=== PATIENT | female | born 1955 | race African-American/Black ===

== ENCOUNTER 2017-10-11 09:46 | Inpatient (IN) | payer MEDICARE, OTHER ==
[2017-10-11 10:14] VITALS: BMI 24.1
--- NOTE | 2017-10-11 12:43 | HP ---
CIWA Score - CIWA Score Nausea/Vomitin (DIARRHEA) Muscle Tremors: 4-Moderate,w/Arms Extend Anxiety: 5 Agitation: 4-Moderately Restless Paroxysmal Sweats: 1-Minimal Palms Moist Orientation: 0-Oriented Tacttile Disturbances: 0-None Auditory Disturbances: 0-None Visual Disturbances: 0-None Headache: 0-None Present CIWA-Ar Total Score: 16 Admission ROS S - [facility] Chief Complaint: ALCOHOL WITHDRAWAL SX Allergies/Adverse Reactions: Allergies Allergy/AdvReac Type Severity Reaction Status Date / Time No Known Allergies Allergy Verified 10/11/17 10:29 History of Present Illness: 62 Y/O A/FEMALE WITH A HX OF ALCOHOL DEPENDENCE SEEKING DETOX TX. PT REPORTS SHE WAS LAST HERE IN 2010. PT REPORTS 4 YRS OF CLEAN. PT REPORTS SHE IS ON PAIN MANAGEMENT(SEE BELOW) BUT WANTS DETOX FROM ALCOHOL AND WILL TAKE ANY PAIN AID GIVEN PER DETOX PROTOCOL. Others' Prescriptions Patient Name: Isatu Almazan Date: 1955 Address: [address] [place] [address] Sex: Female Rx Written Rx Dispensed Drug Quantity Days Supply Prescriber Name 09/08/2017 09/11/2017 xtampza er 13.5 mg capsule 60 30 Mosheyev, Jose 08/08/2017 08/13/2017 xtampza er 13.5 mg capsule 56 28 Mosheyev, Jose 07/25/2017 07/25/2017 xtampza er 13.5 mg capsule 30 15 Mosheyev, Jose 06/29/2017 07/10/2017 xtampza er 13.5 mg capsule 30 15 Mosheyev, [facility] 05/30/2017 05/30/2017 acetaminophen-cod #3 tablet 60 30 Mosheyev, [facility] 05/30/2017 05/30/2017 morphine sulf er 60 mg tablet 60 30 Mosheyev, [facility] 04/29/2017 04/29/2017 acetaminophen-cod #3 tablet 60 30 Mosheyev, Jose 04/29/2017 04/29/2017 morphine sulf er 60 mg tablet 60 30 Mosheyev, [facility] 04/26/2017 04/26/2017 morphine sulf er 60 mg tablet 6 3 [facility] 04/13/2017 04/14/2017 acetaminophen-cod #3 tablet 15 7 Woodrow Mesa MD 04/13/2017 04/14/2017 morphine sulf er 60 mg tablet 15 7 BonitaWoodrow MD 03/11/2017 03/12/2017 morphine sulf er 60 mg tablet 60 30 BonitaWoodrow fisher MD 02/25/2017 03/11/2017 acetaminophen-cod #3 tablet 60 30 BonitaWoodrow fisher MD 01/25/2017 02/04/2017 acetaminophen-cod #3 tablet 60 30 Deny, Gilberto A 01/25/2017 02/04/2017 morphine sulf er 60 mg tablet 60 30 Deny, Gilberto A 12/27/2016 01/06/2017 acetaminophen-cod #3 tablet 60 30 BonitaWoodrow MD 12/27/2016 01/06/2017 morphine sulf er 60 mg tablet 60 30 BonitaWoodrow MD 11/12/2016 12/03/2016 acetaminophen-cod #3 tablet 60 30 BonitaWoodrow MD 11/12/2016 12/03/2016 morphine sulf er 60 mg tablet 60 30 BonitaWoodrow MD 10/26/2016 10/31/2016 acetaminophen-cod #3 tablet 60 30 [facility] 10/26/2016 10/31/2016 morphine sulf er 100 mg tablet 60 30 [facility] Patient Name: Isatu Almazan Date: 1955 Address: [address] [place], [place] [id number] [place] [address] Sex: Female Rx Written Rx Dispensed Drug Quantity Days Supply Prescriber Name 04/25/2017 04/25/2017 diazepam 5 mg tablet 10 10 Nathanael Shinecy Batsheva * - Drugs marked with an asterisk are compound drugs. If the compound drug is made up of more than one controlled substance, then each controlled substance will be a separate row in the table. PT HAS A PMD: DR. BRIGGS AT [place], [place]. Exam Limitations: No Limitations - Ebola screening Have you traveled outside of the country in the last 21 days: No Have you had contact with anyone from an Ebola affected area: No Have you been sick,other than usual withdrawal symptoms: No Do you have a fever: No - Review of Systems Constitutional: Chills, Loss of Appetite, Night Sweats, Changes in sleep, Unintentional Wgt. Loss EENT: reports: Blurred Vision (WEARS GLASSES), Dental Problems (MISSING TEETH) Respiratory: reports: No Symptoms reported Cardiac: reports: No Symptoms Reported GI: reports: Diarrhea, Poor Appetite, Poor Fluid Intake : reports: Frequency, Urgency Musculoskeletal: reports: Back Pain, Joint Pain, Muscle Pain Integumentary: reports: No Symptoms Reported Neuro: reports: Tremors, Dizziness Endocrine: reports: No Symptoms Reported Hematology: reports: No Symptoms Reported Psychiatric: reports: Orientated x3, Anxious, Depressed Other Systems: Reviewed and Negative Patient History - Patient Medical History Hx Anemia: No Hx Asthma: No Hx Chronic Obstructive Pulmonary Disease (COPD): No Hx Depression: Yes (HX OF MDD WITH PSYCHOTIC FEATURES) Hx Suicide Attempt: No (DENIES) Hx Schizophrenia: Yes - Patient Surgical History Past Surgical History: Yes Other Surgical History: ECTOPIC SX AT 20 YRS OLD Anesthesia Reaction: No - PPD History Previous Implant?: Yes Documented Results: Negative w/o proof PPD to be Administered?: Yes - Reproductive History Patient is a Female of Child Bearing Age (11 -55 yrs old): 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 History Hx Alcohol Use: Yes (BACARDI) Hx Substance Use: Yes (MARIJUANA) Substance Use Type: Alcohol, Marijuana Hx Substance Use Treatment: Yes (LAST TX AT [facility]) - Substances Abused Alcohol Route: Oral Frequency: Daily Amount used: 1 PINT OF BACARDI Age of first use: 18 Date of Last Use: 10/11/17 Marijuana/Hashish Route: Smoking Frequency: 1-2 times per week Amount used: $10 Age of first use: 18 Date of Last Use: 10/05/17 Family Disease History - Family Disease History Family Disease History: Diabetes: Grandparent (), Sister (2 SISTERS), Other: Mother (HTN-) Admission Physical Exam BHS - Vital Signs Vital Signs: Vital Signs - 24 hr 10/11/17 10:12 Temperature 97.5 F L Pulse Rate 110 H Respiratory 18 Rate Blood Pressure 145/102 - Physical General Appearance: Yes: Moderate Distress, Irritable, Anxious HEENTM: Yes: EOMI, Normocephalic, BARBARA, Pharynx Normal Respiratory: Yes: Chest Non-Tender, Lungs Clear, Normal Breath Sounds, No Respiratory Distress Neck: Yes: No masses,lesions,Nodules, Supple, Trachea in good position Breast: Yes: Breast Exam Deferred Cardiology: Yes: Regular Rhythm, S1, S2, Tachycardia Abdominal: Yes: Normal Bowel Sounds, Non Tender, Flat Genitourinary: Yes: Other (N/C) Back: Yes: Within Normal Limits Musculoskeletal: Yes: full range of Motion, Gait Steady Extremities: Yes: Normal Range of Motion, Non-Tender Neurological: Yes: 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 intact, Fully Oriented, Alert, Motor Strength 5/5 Integumentary: Yes: Dry, Warm Lymphatic: Yes: Within Normal Limits - Diagnostic (1) Alcohol dependence with uncomplicated withdrawal Current Visit: Yes Status: Acute (2) Diabetes mellitus Current Visit: Yes Status: Chronic (3) Hypertension Current Visit: Yes Status: Chronic Qualifiers: Hypertension type: essential hypertension Qualified Code(s): I10 - Essential (primary) hypertension (4) Hx of manic depressive disorder Current Visit: Yes Status: Chronic (5) Chronic bilateral back pain Current Visit: Yes Status: Acute Qualifiers: Back pain location: low back pain Sciatica laterality: sciatica of right side Cleared for Admission [facility] - Detox or Rehab [facility] Level of Care: Medically Managed Detox Regimen/Protocol: Librium [facility] Breath Alcohol Content Breath Alcohol Content: 0 Urine Pregancy Test - Result Urine Test Results: Negative- NO Line Present Urine Drug Screen - Results Drug Screen Negative: No Urine Drug Screen Results: RAY-Cocaine, OXY-Oxycodone
[2017-10-11] MEDS ORDERED: IBUPROFEN 400 MG TABLET (FP) PO PRN (13:22)
[2017-10-11] MEDS ORDERED: P-EPHED 60MG/TRIPROLIDI 2.5MG TABLET PO PRN (13:22)
[2017-10-11] MEDS ORDERED: guaiFENesin/D-METHORPHAN HB 10 ML UNIT-DOSE CUPS PO PRN (13:22)
[2017-10-11] MEDS ORDERED: MAGNESIUM HYDROX 2400MG/30ML ORAL SUSPENSION 30 ML CUP PO PRN (13:22)
[2017-10-11] MEDS ORDERED: MAG HYDROX/AL HYDROX/SIMETH 30 ML UNIT-DOSE CUP PO PRN (13:22)
[2017-10-11] MEDS ORDERED: MAGNESIUM CITRATE 300 ML BOTTLE PO PRN (13:22)
[2017-10-11] MEDS ORDERED: MENTHOL/PHENOL 1 EACH UD MM PRN (13:22)
[2017-10-11] MEDS ORDERED: NICOTINE POLACRILEX 2 MG GUM BUC PRN (13:22)
[2017-10-11] MEDS ORDERED: LOPERAMIDE HCL 2 MG CAPSULE PO PRN (13:22)
[2017-10-11] MEDS ORDERED: chlordiazePOXIDE HCL 25 MG CAPSULE PO PRN (13:22)
[2017-10-11] MEDS ORDERED: chlordiazePOXIDE HCL 25 MG CAPSULE PO ONE (14:45)
[2017-10-11] MEDS: NICOTINE 14 MG/24 HOURS TOPICAL PATCH TD SCH (15:48)
[2017-10-11] MEDS: LIDOCAINE 5% TOPICAL PATCH TP SCH (15:49)
[2017-10-11] MEDS: chlordiazePOXIDE HCL 25 MG CAPSULE PO SCH ×2 (17:51→23:12)
[2017-10-11] MEDS: HYDROCHLOROTHIAZIDE 12.5 MG CAPSULE (FP) PO SCH (17:51)
[2017-10-11] MEDS: CYCLOBENZAPRINE HCL 10 MG TABLET (FP) PO PRN (17:54)
[2017-10-11] MEDS: LIDOCAINE PATCH REMOVAL MC SCH (22:55)
[2017-10-11] MEDS: THIAMINE HCL 100 MG TABLET (FP) PO SCH (23:14)
[2017-10-12] MEDS: chlordiazePOXIDE HCL 25 MG CAPSULE PO SCH ×4 (05:39→22:25)
[2017-10-12] MEDS: ACETAMINOPHEN 325 MG TABLET (FP) PO PRN (07:58)
--- NOTE | 2017-10-12 09:10 | CONSULT ---
[facility] Psychiatric Consult - Data Date of interview: 10/12/17 Admission source: [facility] Identifying data: This is a 62 year4s old female, , living alone, on SSD , with psychiatric hospitalization history, history of MDD, long history of Alcohol Cannabis and Nicotine dependence, reporting withdrawaol symptoms and seeking for detox. Substance Abuse History: - Smoking Cessation. Smoking history: Current every day smoker. Have you smoked in the past 12 months: Yes. Aproximately how many cigarettes per day: 4. Hx Chewing Tobacco Use: No. Initiated information on smoking cessation: Yes. 'Breaking Loose' booklet given: 10/11/17. - Substance & Tx. History. Hx Alcohol Use: Yes (BACARDI). Hx Substance Use: Yes (MARIJUANA ). Substance Use Type: Alcohol, Marijuana. Hx Substance Use Treatment: Yes ( LAST TX AT [facility]). - Substances Abused. Alcohol. Route: Oral. Frequency: Daily. Amount used: 1 PINT OF BACARDI. Age of first use: 18. Date of Last Use : 10/11/17. Marijuana/Hashish. Route: Smoking. Frequency: 1-2 times per week. Amount used: $10. Age of first use: 18. Date of Last Use: 10/05/17 Medical History: HTN, DM, LBP Psychiatric History: Patient reports history of Depression, mdd, reports unclear psychiatrioc admission on about 3 months ago at [facility] reports cuirrently taking: Abilify 5mg po qhs. Denies suicidal, homicidal history Physical/Sexual Abuse/Trauma History: Denies Additional Comment: Abilify 5mg po qhs Mental Status Exam - Mental Status Exam Alert and Oriented to: Person Cognitive Function: Fair Patient Appearance: Unkempt Mood: Sad Affect: Mood Congruent Patient Behavior: Cooperative Voice Loudness: Mildly Soft/Quiet Thought Process: Goal Oriented Thought Disorder: Being Controlled Hallucinations: Denies Suicidal Ideation: Denies Homicidal Ideation: Denies Insight/Judgement: Fair Sleep: Difficulty falling asleep Appetite: Fair Muscle strength/Tone: Mild Hypotonicity Gait/Station: Shuffling Additional Comments: Abilify 5mg po qhs Psychiatric Findings - Problem List ([place] 1, 2,3) (1) Cannabis dependence Current Visit: Yes Status: Acute (2) Nicotine dependence Current Visit: Yes Status: Acute (3) Drug-induced mood disorder Current Visit: Yes Status: Acute (4) MDD (major depressive disorder) Current Visit: Yes Status: Acute (5) Alcohol dependence with uncomplicated withdrawal Current Visit: Yes Status: Acute (6) Chronic bilateral back pain Current Visit: Yes Status: Acute Qualifiers: Back pain location: low back pain Sciatica laterality: sciatica of right side (7) Diabetes mellitus Current Visit: Yes Status: Chronic (8) Hypertension Current Visit: Yes Status: Chronic Qualifiers: Hypertension type: essential hypertension Qualified Code(s): I10 - Essential (primary) hypertension - Initial Treatment Plan Initial Treatment Plan: Abilify 5mg po qhs
[2017-10-12] MEDS ORDERED: TRIMETHOBENZAMIDE HCL 200MG/2ML INJ IM PRN (10:07)
[2017-10-12 10:49] LABS: CHLORIDE 98 mmol/L (98-107); POTASSIUM 4.6 mmol/L (3.5-5.1); SODIUM 134 mmol/L (136-145)
[2017-10-12 10:57] LABS: HEMATOCRIT 42.9 % (32.4-45.2); HEMOGLOBIN 14.4 GM/dL (10.7-15.3); MCH 32.4 pg (25.7-33.7); MCHC 33.6 g/dl (32.0-36.0); MEAN CELL VOLUME 96.2 fl (80-96); MEAN PLT VOLUME 8.9 fl (7.5-11.1); PLATELET COUNT 369 K/MM3 (134-434); RBC 4.46 M/mm3 (3.60-5.2); RDW 12.5 % (11.6-15.6); WHITE BLOOD COUNT 12.1 K/mm3 (4.0-10.0)
[2017-10-12 11:00] LABS: URINE APPEARANCE SLCLOUDY; URINE BILIRUBIN NEGATIVE (<2.0 mg/dL); URINE COLOR YELLOW; URINE GLUCOSE (UA) 3+ (NEGATIVE); URINE KETONE 2+ (NEGATIVE); URINE NITRITE POSITIVE (NEGATIVE); URINE PROTEIN NEGATIVE (NEGATIVE); URINE UROBILINOGEN NEGATIVE mg/dL (0.2-1.0)
[2017-10-12] MEDS: HYDROCHLOROTHIAZIDE 12.5 MG CAPSULE (FP) PO SCH (11:02)
[2017-10-12] MEDS: CYCLOBENZAPRINE HCL 10 MG TABLET (FP) PO PRN (11:02)
[2017-10-12] MEDS: PRENATAL VITAMINS W/ FOLIC ACID TABLET (FP) PO SCH (11:02)
[2017-10-12] MEDS: NICOTINE 14 MG/24 HOURS TOPICAL PATCH TD SCH (11:03)
[2017-10-12] MEDS: LIDOCAINE 5% TOPICAL PATCH TP SCH (11:04)
[2017-10-12 11:12] LABS: ALBUMIN 4.4 g/dl (3.4-5.0); ALK PHOS 92 U/L (45-117); ANION GAP 14 MMOL/L (8-16); BILIRUBIN,TOTAL 0.8 mg/dL (0.2-1.0); BLOOD UREA NITROGEN 13 mg/dL (7-18); CO2 22 mmol/L (21-32); CREATININE 0.9 mg/dL (0.55-1.02); GLUCOSE,RANDOM 261 mg/dL (74-106); SGOT/AST 18 U/L (15-37); SGPT/ALT 27 U/L (12-78)
[2017-10-12 11:18] LABS: URINE LEUK ESTERASE 1+ (NEGATIVE)
[2017-10-12 11:40] LABS: EPI CELLS RARE /HPF (FEW); URINE BACTERIA MODERATE /hpf (NONE SEEN); URINE MUCUS RARE; YEAST FEW
--- NOTE | 2017-10-12 12:25 | PN ---
[facility] CIWA - CIWA Score Nausea/Vomitin Muscle Tremors: 2 Anxiety: 3 Agitation: 3 Paroxysmal Sweats: 3 Orientation: 0-Oriented Tacttile Disturbances: 2-Mild Itch/Numbness/Burn Auditory Disturbances: 0-None Visual Disturbances: 0-None Headache: 1-Very Mild CIWA-Ar Total Score: 19 BHS COWS - Scale Resting Pulse: 1= [place] 81-100 Sweatin= Chills/Flushing Restless Observation: 1= Difficult to Sit Still Pupil Size: 1= Pupils >than Normal Bone or Joint Aches: 2= Severe Diffuse Aches Runny Nose/ Eye Tearin= Nasal Congestion GI Upset > 30mins: 3= Vomiting/Diarrhea Tremor Observation of Outstretched Hands: 1= Tremor [place], Not Seen Yawning Observation: 0= None Anxiety or Irritability: 2=Irritable/Anxious Goose Flesh Skin: 0=Smooth Skin COWS Score: 13 BHS Progress Note (SOAP) Subjective: interrupted sleep, sweats , shakes ,nausea, vomiting , diarrhea Objective: 10/12/17 12:39 Vital Signs Temperature 98.2 F 10/12/17 12:07 Pulse Rate 96 H 10/12/17 12:07 Respiratory Rate 18 10/12/17 12:07 Blood Pressure 144/97 10/12/17 12:07 O2 Sat by Pulse Oximetry (%) Laboratory Tests 10/11/17 10/11/17 10/12/17 12:59 16:38 05:38 WBC RBC Hgb Hct MCV MCH MCHC RDW Plt Count MPV Sodium Potassium Chloride Carbon Dioxide Anion Gap BUN Creatinine Creat Clearance w eGFR POC Glucometer 254 221 187 Random Glucose Calcium Total Bilirubin AST ALT Alkaline Phosphatase Total Protein Albumin Urine Color Urine Appearance Urine pH Ur Specific [place] Urine Protein Urine Glucose (UA) Urine Ketones Urine Blood Urine Nitrite Urine Bilirubin Urine Urobilinogen Ur Leukocyte Esterase Urine WBC (Auto) Urine RBC (Auto) Ur Epithelial Cells Urine Bacteria Urine Mucus Urine Yeast RPR Titer 10/12/17 10/12/17 10/12/17 06:00 06:00 06:00 WBC 12.1 H RBC 4.46 Hgb 14.4 Hct 42.9 MCV 96.2 H MCH 32.4 MCHC 33.6 RDW 12.5 Plt Count 369 MPV 8.9 Sodium 134 L Potassium 4.6 Chloride 98 Carbon Dioxide 22 Anion Gap 14 BUN 13 Creatinine 0.9 Creat Clearance w eGFR > 60 POC Glucometer Random Glucose 261 H Calcium 10.0 Total Bilirubin 0.8 AST 18 ALT 27 Alkaline Phosphatase 92 Total Protein 8.0 Albumin 4.4 Urine Color Urine Appearance Urine pH Ur Specific [place] Urine Protein Urine Glucose (UA) Urine Ketones Urine Blood Urine Nitrite Urine Bilirubin Urine Urobilinogen Ur Leukocyte Esterase Urine WBC (Auto) Urine RBC (Auto) Ur Epithelial Cells Urine Bacteria Urine Mucus Urine Yeast RPR Titer Nonreactive 10/12/17 09:05 WBC RBC Hgb Hct MCV MCH MCHC RDW Plt Count MPV Sodium Potassium Chloride Carbon Dioxide Anion Gap BUN Creatinine Creat Clearance w eGFR POC Glucometer Random Glucose Calcium Total Bilirubin AST ALT Alkaline Phosphatase Total Protein Albumin Urine Color Yellow Urine Appearance Slcloudy Urine pH 5.0 Ur Specific [place] 1.027 Urine Protein Negative Urine Glucose (UA) 3+ H Urine Ketones 2+ H Urine Blood Negative Urine Nitrite Positive Urine Bilirubin Negative Urine Urobilinogen Negative Ur Leukocyte Esterase 1+ H Urine WBC (Auto) <1 Urine RBC (Auto) 5 Ur Epithelial Cells Rare Urine Bacteria Moderate Urine Mucus Rare Urine Yeast Few RPR Titer 10/12/17 15:00 pt ambulating c/o n/vomiting , diarrhea , but aox3 responds appropriately , 10/12/17 15:13 Assessment: 10/12/17 15:01 withdrawal sx's DM Pt started pt on methadone detox because she has been on pain management over the past several years receiving opioids daily. Pt now in withdrawal .elevated bp, heart rate , nausea, vomiting , diarrhea , uncomfortable Will also continue to monitor pt -she is diabetic glucose is 261, ag 14, wbc 12.1, u/ketones 2+, u/glucose 3+ WITH NAUSEA AND VOMITING ; SERUM ACETONE SENT. Pt STATES SHE IS BETTER AFTER RECEIVING METHADONE . Plan: cont.detox with libriun and methadone increase fluids f/up serum acetone f/up clnically bgm insulin coverage
[2017-10-12] MEDS ORDERED: METHADONE HCL 10 MG TABLET (FOR DETOX USE ONLY) PO ONE ×2 (12:30→23:00)
--- NOTE | 2017-10-12 12:30 | EKG ---
Test Reason : Blood Pressure : / mmHG Vent. Rate : 097 BPM Atrial Rate : 097 BPM P-R Int : 122 ms QRS Dur : 076 ms QT Int : 364 ms P-R-T Axes : 060 032 054 degrees QTc Int : 462 ms NORMAL SINUS RHYTHM WITH SINUS ARRHYTHMIA NORMAL ECG NO PREVIOUS ECGS AVAILABLE Confirmed by FITZ ELLIS MD ([id number]) on 10/12/2017 12:30:09 PM Referred By: Confirmed By:FITZ ELLIS MD
--- NOTE | 2017-10-12 12:32 | EKG ---
Test Reason : Blood Pressure : / mmHG Vent. Rate : 096 BPM Atrial Rate : 096 BPM P-R Int : 116 ms QRS Dur : 074 ms QT Int : 368 ms P-R-T Axes : 069 016 028 degrees QTc Int : 464 ms NORMAL SINUS RHYTHM NORMAL ECG WHEN COMPARED WITH ECG OF 11-OCT-2017 15:22, NO SIGNIFICANT CHANGE WAS FOUND Confirmed by FITZ ELLIS MD ([id number]) on 10/12/2017 12:32:14 PM Referred By: Confirmed By:FITZ ELLIS MD
[2017-10-12 13:29] LABS: SICKLE CELL SCREEN NEGATIVE (NEGATIVE)
[2017-10-12] MEDS ORDERED: INSULIN SLIDING SCALE (NOVOLOG) 1 VIAL SQ SCH (16:30)
[2017-10-12] MEDS ORDERED: INSULIN (NOVOLOG) ASPART 100 UNITS/ML 10ML VIAL ONE (16:48)
[2017-10-12] MEDS ORDERED: INSULIN (NOVOLOG) ASPART 100 UNITS/ML 10ML VIAL SQ ONE ×2 (17:15→19:15)
[2017-10-12] MEDS: ARIPiprazole 5 MG TABLET (FP) PO SCH (22:25)
[2017-10-12] MEDS: THIAMINE HCL 100 MG TABLET (FP) PO SCH (23:07)
[2017-10-12] MEDS: LIDOCAINE PATCH REMOVAL MC SCH (23:07)
[2017-10-13] MEDS: chlordiazePOXIDE HCL 25 MG CAPSULE PO SCH ×2 (06:31→10:31)
[2017-10-13] MEDS ORDERED: INSULIN (NOVOLOG) ASPART 100 UNITS/ML 10ML VIAL ONE ×3 (06:52→16:55)
[2017-10-13] MEDS: INSULIN SLIDING SCALE (NOVOLOG) 1 VIAL SQ SCH ×2 (06:54→17:09)
[2017-10-13] MEDS ORDERED: metFORMIN HCL 500 MG TABLET (FP) PO SCH (07:00)
[2017-10-13] MEDS ORDERED: METHADONE HCL 5 MG TABLET (FOR DETOX USE ONLY) PO ONE (10:00)
[2017-10-13] MEDS: HYDROCHLOROTHIAZIDE 12.5 MG CAPSULE (FP) PO SCH (10:30)
[2017-10-13] MEDS: PRENATAL VITAMINS W/ FOLIC ACID TABLET (FP) PO SCH (10:30)
[2017-10-13] MEDS: LIDOCAINE 5% TOPICAL PATCH TP SCH (10:31)
[2017-10-13] MEDS: CYCLOBENZAPRINE HCL 10 MG TABLET (FP) PO PRN (10:32)
[2017-10-13] MEDS: NICOTINE 14 MG/24 HOURS TOPICAL PATCH TD SCH (10:33)
[2017-10-13 11:33] LABS: BASO % 0.6 % (0-2.0); EOS % 1.5 % (0-4.5); HEMATOCRIT 41.5 % (32.4-45.2); LYMPH % 38.5 % (8-40); MCH 32.2 pg (25.7-33.7); MCHC 33.6 g/dl (32.0-36.0); MEAN CELL VOLUME 95.8 fl (80-96); MEAN PLT VOLUME 8.3 fl (7.5-11.1); MONO % 7.1 % (3.8-10.2); NEUT % 52.3 % (42.8-82.8); PLATELET COUNT 298 K/MM3 (134-434); RBC 4.34 M/mm3 (3.60-5.2); RDW 12.4 % (11.6-15.6); WHITE BLOOD COUNT 7.1 K/mm3 (4.0-10.0)
[2017-10-13] MEDS: chlordiazePOXIDE 5 MG CAPSULE PO SCH (17:11)
--- NOTE | 2017-10-13 22:31 | PN ---
S CIWA - CIWA Score Nausea/Vomitin-Mild Nausea/No Vomiting Muscle Tremors: 4-Moderate,w/Arms Extend Anxiety: 1-Mildly Anxious Agitation: 1-Slight > Activity Paroxysmal Sweats: 1-Minimal Palms Moist Orientation: 0-Oriented Tacttile Disturbances: 0-None Auditory Disturbances: 0-None Visual Disturbances: 0-None Headache: 0-None Present CIWA-Ar Total Score: 8 BHS COWS - Scale Resting Pulse: 1= [place] 81-100 Sweatin= Chills/Flushing Restless Observation: 0= Sits Still Pupil Size: 0= Normal to Room Light Bone or Joint Aches: 0= None Runny Nose/ Eye Tearin= None GI Upset > 30mins: 2= Nausea/Diarrhea (No diarrhea) Tremor Observation of Outstretched Hands: 2= Slight Tremor Visible Yawning Observation: 0= None Anxiety or Irritability: 1=Feels Anxious/Irritable Goose Flesh Skin: 0=Smooth Skin COWS Score: 7 S Progress Note (SOAP) Subjective: c/o nausea w/o vomiting or diarrhea, chills and slight sweating, anxiety and shakes. Objective: A& O x 3. Slight perspiration face and hands. (+) tremors. Abd S/NT. Vital Signs - 24 hr 10/12/17 10/13/17 10/13/17 23:58 03:30 08:36 Temperature 97.9 F 97.9 F Pulse Rate 96 H 102 H Respiratory 18 18 20 Rate Blood Pressure 116/78 120/77 10/13/17 10/13/17 10/13/17 09:08 13:57 17:37 Temperature 97.7 F 98.8 F 97.7 F Pulse Rate 99 H 94 H 98 H Respiratory 18 16 18 Rate Blood Pressure 118/69 116/75 107/59 Laboratory Last Values WBC 7.1 K/mm3 (4.0-10.0) 10/13/17 08:00 RBC 4.34 M/mm3 (3.60-5.2) 10/13/17 08:00 Hgb 14.0 GM/dL (10.7-15.3) 10/13/17 08:00 Hct 41.5 % (32.4-45.2) 10/13/17 08:00 MCV 95.8 fl (80-96) 10/13/17 08:00 MCH 32.2 pg (25.7-33.7) 10/13/17 08:00 MCHC 33.6 g/dl (32.0-36.0) 10/13/17 08:00 RDW 12.4 % (11.6-15.6) 10/13/17 08:00 Plt Count 298 K/MM3 (134-434) 10/13/17 08:00 MPV 8.3 fl (7.5-11.1) 10/13/17 08:00 Absolute Neuts (auto) 3.7 K/mm3 (1.5-8.0) 10/13/17 08:00 Neutrophils % 52.3 % (42.8-82.8) 10/13/17 08:00 Lymphocytes % 38.5 % (8-40) 10/13/17 08:00 Monocytes % 7.1 % (3.8-10.2) 10/13/17 08:00 Eosinophils % 1.5 % (0-4.5) 10/13/17 08:00 Basophils % 0.6 % (0-2.0) 10/13/17 08:00 Nucleated RBC % 0 % (0-0) 10/13/17 08:00 Sickle Cell Screen Negative (NEGATIVE) 10/12/17 06:00 Sodium 134 mmol/L (136-145) L 10/12/17 06:00 Potassium 4.6 mmol/L (3.5-5.1) 10/12/17 06:00 Chloride 98 mmol/L (98-107) 10/12/17 06:00 Carbon Dioxide 22 mmol/L (21-32) 10/12/17 06:00 Anion Gap 14 MMOL/L (8-16) 10/12/17 06:00 BUN 13 mg/dL (7-18) 10/12/17 06:00 Creatinine 0.9 mg/dL (0.55-1.02) 10/12/17 06:00 Creat Clearance w eGFR > 60 (>60) 10/12/17 06:00 POC Glucometer 459 UNITS (80-120) 10/13/17 06:40 Random Glucose 261 mg/dL (74-106) H 10/12/17 06:00 Calcium 10.0 mg/dL (8.5-10.1) 10/12/17 06:00 Total Bilirubin 0.8 mg/dL (0.2-1.0) 10/12/17 06:00 AST 18 U/L (15-37) 10/12/17 06:00 ALT 27 U/L (12-78) 10/12/17 06:00 Alkaline Phosphatase 92 U/L (45-117) 10/12/17 06:00 Total Protein 8.0 g/dl (6.4-8.2) 10/12/17 06:00 Albumin 4.4 g/dl (3.4-5.0) 10/12/17 06:00 Urine Color Yellow 10/12/17 09:05 Urine Appearance Slcloudy 10/12/17 09:05 Urine pH 5.0 (5.0-8.0) 10/12/17 09:05 Ur Specific [place] 1.027 (1.001-1.035) 10/12/17 09:05 Urine Protein Negative (NEGATIVE) 10/12/17 09:05 Urine Glucose (UA) 3+ (NEGATIVE) H 10/12/17 09:05 Urine Ketones 2+ (NEGATIVE) H 10/12/17 09:05 Urine Blood Negative (NEGATIVE) 10/12/17 09:05 Urine Nitrite Positive (NEGATIVE) 10/12/17 09:05 Urine Bilirubin Negative (<2.0 mg/dL) 10/12/17 09:05 Urine Urobilinogen Negative mg/dL (0.2-1.0) 10/12/17 09:05 Ur Leukocyte Esterase 1+ (NEGATIVE) H 10/12/17 09:05 Urine WBC (Auto) <1 /hpf (3-5) 10/12/17 09:05 Urine RBC (Auto) 5 /hpf (0-3) 10/12/17 09:05 Ur Epithelial Cells Rare /HPF (FEW) 10/12/17 09:05 Urine Bacteria Moderate /hpf (NONE SEEN) 10/12/17 09:05 Urine Mucus Rare 10/12/17 09:05 Urine Yeast Few 10/12/17 09:05 Acetone, Qual Trace (NEGATIVE) H 10/12/17 13:05 RPR Titer Nonreactive (NONREACTIVE) 10/12/17 06:00 HIV 1&2 Antibody Screen Negative 10/11/17 09:45 HIV P24 Antigen Negative 10/11/17 09:45 Labs reviewed. 10/13/17 22:32 Assessment: Opiate and Alcohol withdrawal symptoms. Uncontrolled DM Plan: Continue detox Continue glucose monitoring and coverage
--- NOTE | 2017-10-13 22:39 | PN ---
[facility] Progress Note (SOAP) Subjective: States has less w/drawal symptoms but still feels nervous. Objective: A & O x 3. Very mild tremors of hands. Vital Signs - 24 hr 10/12/17 10/13/17 10/13/17 23:58 03:30 08:36 Temperature 97.9 F 97.9 F Pulse Rate 96 H 102 H Respiratory 18 18 20 Rate Blood Pressure 116/78 120/77 10/13/17 10/13/17 10/13/17 09:08 13:57 17:37 Temperature 97.7 F 98.8 F 97.7 F Pulse Rate 99 H 94 H 98 H Respiratory 18 16 18 Rate Blood Pressure 118/69 116/75 107/59 10/13/17 22:37 Temperature 97.7 F Pulse Rate 79 Respiratory 18 Rate Blood Pressure 91/64 Laboratory Last Values WBC 7.1 K/mm3 (4.0-10.0) 10/13/17 08:00 RBC 4.34 M/mm3 (3.60-5.2) 10/13/17 08:00 Hgb 14.0 GM/dL (10.7-15.3) 10/13/17 08:00 Hct 41.5 % (32.4-45.2) 10/13/17 08:00 MCV 95.8 fl (80-96) 10/13/17 08:00 MCH 32.2 pg (25.7-33.7) 10/13/17 08:00 MCHC 33.6 g/dl (32.0-36.0) 10/13/17 08:00 RDW 12.4 % (11.6-15.6) 10/13/17 08:00 Plt Count 298 K/MM3 (134-434) 10/13/17 08:00 MPV 8.3 fl (7.5-11.1) 10/13/17 08:00 Absolute Neuts (auto) 3.7 K/mm3 (1.5-8.0) 10/13/17 08:00 Neutrophils % 52.3 % (42.8-82.8) 10/13/17 08:00 Lymphocytes % 38.5 % (8-40) 10/13/17 08:00 Monocytes % 7.1 % (3.8-10.2) 10/13/17 08:00 Eosinophils % 1.5 % (0-4.5) 10/13/17 08:00 Basophils % 0.6 % (0-2.0) 10/13/17 08:00 Nucleated RBC % 0 % (0-0) 10/13/17 08:00 Sickle Cell Screen Negative (NEGATIVE) 10/12/17 06:00 Sodium 134 mmol/L (136-145) L 10/12/17 06:00 Potassium 4.6 mmol/L (3.5-5.1) 10/12/17 06:00 Chloride 98 mmol/L (98-107) 10/12/17 06:00 Carbon Dioxide 22 mmol/L (21-32) 10/12/17 06:00 Anion Gap 14 MMOL/L (8-16) 10/12/17 06:00 BUN 13 mg/dL (7-18) 10/12/17 06:00 Creatinine 0.9 mg/dL (0.55-1.02) 10/12/17 06:00 Creat Clearance w eGFR > 60 (>60) 10/12/17 06:00 POC Glucometer 459 UNITS (80-120) 10/13/17 06:40 Random Glucose 261 mg/dL (74-106) H 10/12/17 06:00 Calcium 10.0 mg/dL (8.5-10.1) 10/12/17 06:00 Total Bilirubin 0.8 mg/dL (0.2-1.0) 10/12/17 06:00 AST 18 U/L (15-37) 10/12/17 06:00 ALT 27 U/L (12-78) 10/12/17 06:00 Alkaline Phosphatase 92 U/L (45-117) 10/12/17 06:00 Total Protein 8.0 g/dl (6.4-8.2) 10/12/17 06:00 Albumin 4.4 g/dl (3.4-5.0) 10/12/17 06:00 Urine Color Yellow 10/12/17 09:05 Urine Appearance Slcloudy 10/12/17 09:05 Urine pH 5.0 (5.0-8.0) 10/12/17 09:05 Ur Specific [place] 1.027 (1.001-1.035) 10/12/17 09:05 Urine Protein Negative (NEGATIVE) 10/12/17 09:05 Urine Glucose (UA) 3+ (NEGATIVE) H 10/12/17 09:05 Urine Ketones 2+ (NEGATIVE) H 10/12/17 09:05 Urine Blood Negative (NEGATIVE) 10/12/17 09:05 Urine Nitrite Positive (NEGATIVE) 10/12/17 09:05 Urine Bilirubin Negative (<2.0 mg/dL) 10/12/17 09:05 Urine Urobilinogen Negative mg/dL (0.2-1.0) 10/12/17 09:05 Ur Leukocyte Esterase 1+ (NEGATIVE) H 10/12/17 09:05 Urine WBC (Auto) <1 /hpf (3-5) 10/12/17 09:05 Urine RBC (Auto) 5 /hpf (0-3) 10/12/17 09:05 Ur Epithelial Cells Rare /HPF (FEW) 10/12/17 09:05 Urine Bacteria Moderate /hpf (NONE SEEN) 10/12/17 09:05 Urine Mucus Rare 10/12/17 09:05 Urine Yeast Few 10/12/17 09:05 Acetone, Qual Trace (NEGATIVE) H 10/12/17 13:05 RPR Titer Nonreactive (NONREACTIVE) 10/12/17 06:00 HIV 1&2 Antibody Screen Negative 10/11/17 09:45 HIV P24 Antigen Negative 10/11/17 09:45
[2017-10-14] MEDS: MELATONIN 5 MG TABLETS PO PRN ×2 (02:12→21:40)
[2017-10-14] MEDS: chlordiazePOXIDE 5 MG CAPSULE PO SCH ×2 (05:30→10:07)
[2017-10-14] MEDS ORDERED: INSULIN (NOVOLOG) ASPART 100 UNITS/ML 10ML VIAL ONE ×2 (07:06→16:46)
[2017-10-14] MEDS: INSULIN SLIDING SCALE (NOVOLOG) 1 VIAL SQ SCH ×2 (07:13→16:48)
[2017-10-14] MEDS ORDERED: METHADONE HCL 10 MG TABLET (FOR DETOX USE ONLY) PO ONE (10:00)
[2017-10-14] MEDS: HYDROCHLOROTHIAZIDE 12.5 MG CAPSULE (FP) PO SCH (10:06)
[2017-10-14] MEDS: PRENATAL VITAMINS W/ FOLIC ACID TABLET (FP) PO SCH (10:06)
[2017-10-14] MEDS: LIDOCAINE 5% TOPICAL PATCH TP SCH (10:06)
[2017-10-14] MEDS: CYCLOBENZAPRINE HCL 10 MG TABLET (FP) PO PRN (10:06)
[2017-10-14] MEDS: ACETAMINOPHEN 325 MG TABLET (FP) PO PRN (10:08)
[2017-10-14] MEDS: NICOTINE 14 MG/24 HOURS TOPICAL PATCH TD SCH (10:12)
[2017-10-14] MEDS: chlordiazePOXIDE HCL 10 MG CAPSULE PO SCH ×3 (16:48→22:25)
--- NOTE | 2017-10-14 18:43 | PN ---
[facility] Progress Note (SOAP) Subjective: Patient c/o anxiety, slight shakes, and back pain. States feeling better than yesterday. Denies nausea. Objective: Alert and oriented x 3. Mild tremors. Gait steady. Vital Signs 10/14/17 10/14/17 13:37 17:28 Temperature 97.9 F 98.2 F Pulse Rate 108 H 94 H Respiratory 16 20 Rate Blood Pressure 124/80 117/78 Laboratory Last Values WBC 7.1 K/mm3 (4.0-10.0) 10/13/17 08:00 RBC 4.34 M/mm3 (3.60-5.2) 10/13/17 08:00 Hgb 14.0 GM/dL (10.7-15.3) 10/13/17 08:00 Hct 41.5 % (32.4-45.2) 10/13/17 08:00 MCV 95.8 fl (80-96) 10/13/17 08:00 MCH 32.2 pg (25.7-33.7) 10/13/17 08:00 MCHC 33.6 g/dl (32.0-36.0) 10/13/17 08:00 RDW 12.4 % (11.6-15.6) 10/13/17 08:00 Plt Count 298 K/MM3 (134-434) 10/13/17 08:00 MPV 8.3 fl (7.5-11.1) 10/13/17 08:00 Absolute Neuts (auto) 3.7 K/mm3 (1.5-8.0) 10/13/17 08:00 Neutrophils % 52.3 % (42.8-82.8) 10/13/17 08:00 Lymphocytes % 38.5 % (8-40) 10/13/17 08:00 Monocytes % 7.1 % (3.8-10.2) 10/13/17 08:00 Eosinophils % 1.5 % (0-4.5) 10/13/17 08:00 Basophils % 0.6 % (0-2.0) 10/13/17 08:00 Nucleated RBC % 0 % (0-0) 10/13/17 08:00 Sickle Cell Screen Negative (NEGATIVE) 10/12/17 06:00 Sodium 134 mmol/L (136-145) L 09/05/18 06:00 Potassium 4.6 mmol/L (3.5-5.1) 10/12/17 06:00 Chloride 98 mmol/L (98-107) 10/12/17 06:00 Carbon Dioxide 22 mmol/L (21-32) 10/12/17 06:00 Anion Gap 14 MMOL/L (8-16) 10/12/17 06:00 BUN 13 mg/dL (7-18) 10/12/17 06:00 Creatinine 0.9 mg/dL (0.55-1.02) 10/12/17 06:00 Creat Clearance w eGFR > 60 (>60) 10/12/17 06:00 POC Glucometer 380 UNITS (80-120) 10/14/17 05:28 Random Glucose 261 mg/dL (74-106) H 10/12/17 06:00 Calcium 10.0 mg/dL (8.5-10.1) 10/12/17 06:00 Total Bilirubin 0.8 mg/dL (0.2-1.0) 10/12/17 06:00 AST 18 U/L (15-37) 10/12/17 06:00 ALT 27 U/L (12-78) 10/12/17 06:00 Alkaline Phosphatase 92 U/L (45-117) 10/12/17 06:00 Total Protein 8.0 g/dl (6.4-8.2) 10/12/17 06:00 Albumin 4.4 g/dl (3.4-5.0) 10/12/17 06:00 Urine Color Yellow 10/12/17 09:05 Urine Appearance Slcloudy 10/12/17 09:05 Urine pH 5.0 (5.0-8.0) 10/12/17 09:05 Ur Specific [place] 1.027 (1.001-1.035) 10/12/17 09:05 Urine Protein Negative (NEGATIVE) 10/12/17 09:05 Urine Glucose (UA) 3+ (NEGATIVE) H 10/12/17 09:05 Urine Ketones 2+ (NEGATIVE) H 10/12/17 09:05 Urine Blood Negative (NEGATIVE) 10/12/17 09:05 Urine Nitrite Positive (NEGATIVE) 10/12/17 09: Urine Bilirubin Negative (<2.0 mg/dL) 09/05/18 09:05 Urine Urobilinogen Negative mg/dL (0.2-1.0) 10/12/17 09:05 Ur Leukocyte Esterase 1+ (NEGATIVE) H 10/12/17 09:05 Urine WBC (Auto) <1 /hpf (3-5) 10/12/17 09:05 Urine RBC (Auto) 5 /hpf (0-3) 10/12/17 09:05 Ur Epithelial Cells Rare /HPF (FEW) 10/12/17 09:05 Urine Bacteria Moderate /hpf (NONE SEEN) 10/12/17 09:05 Urine Mucus Rare 10/12/17 09:05 Urine Yeast Few 10/12/17 09:05 Acetone, Qual Trace (NEGATIVE) H 10/12/17 13:05 RPR Titer Nonreactive (NONREACTIVE) 10/12/17 06:00 HIV 1&2 Antibody Screen Negative 10/11/17 09:45 HIV P24 Antigen Negative 10/11/17 09:45 Labs reviewed. Assessment: Alcohol and opiate withdrawal symptoms. Uncontrolled DM. Plan: Continue detox. Continue DM management. Importance of f/u w/ PCP upon discharge discussed.
[2017-10-14] MEDS: ARIPiprazole 5 MG TABLET (FP) PO SCH (21:40)
[2017-10-14] MEDS: THIAMINE HCL 100 MG TABLET (FP) PO SCH (21:41)
[2017-10-15] MEDS: chlordiazePOXIDE HCL 10 MG CAPSULE PO SCH (05:49)
[2017-10-15] MEDS ORDERED: INSULIN (NOVOLOG) ASPART 100 UNITS/ML 10ML VIAL ONE (05:54)
[2017-10-15] MEDS ORDERED: METHADONE HCL 5 MG TABLET (FOR DETOX USE ONLY) PO ONE (06:00)
[2017-10-15] MEDS: INSULIN SLIDING SCALE (NOVOLOG) 1 VIAL SQ SCH (06:45)
--- NOTE | 2017-10-15 09:13 | DS ---
[facility] Detox Discharge Summary Admission Date: 10/11/17 Discharge Date: 10/15/17 - History Present History: Alcohol Dependence, Cannabis Dependence, Opioid Dependence Additional Comments: Patient medically stable. Patient to follow up with Primary care provider in 1 - 2 weeks. If worsening symptoms are present, patient to follow up with local ED. - Physical Exam Results Vital Signs: Vital Signs Temperature 97.2 F L 10/15/17 06:00 Pulse Rate 87 10/15/17 06:00 Respiratory Rate 18 10/15/17 06:00 Blood Pressure 117/79 10/15/17 06:00 O2 Sat by Pulse Oximetry (%) Pertinent Admission Physical Exam Findings: Vital Signs Temperature 97.9 F 10/15/17 09:49 Pulse Rate 103 H 10/15/17 09:49 Respiratory Rate 18 10/15/17 09:49 Blood Pressure 132/67 10/15/17 09:49 O2 Sat by Pulse Oximetry (%) Laboratory Last Values WBC 7.1 K/mm3 (4.0-10.0) 10/13/17 08:00 RBC 4.34 M/mm3 (3.60-5.2) 10/13/17 08:00 Hgb 14.0 GM/dL (10.7-15.3) 10/13/17 08:00 Hct 41.5 % (32.4-45.2) 10/13/17 08:00 MCV 95.8 fl (80-96) 10/13/17 08:00 MCH 32.2 pg (25.7-33.7) 10/13/17 08:00 MCHC 33.6 g/dl (32.0-36.0) 10/13/17 08:00 RDW 12.4 % (11.6-15.6) 10/13/17 08:00 Plt Count 298 K/MM3 (134-434) 10/13/17 08:00 MPV 8.3 fl (7.5-11.1) 10/13/17 08:00 Absolute Neuts (auto) 3.7 K/mm3 (1.5-8.0) 10/13/17 08:00 Neutrophils % 52.3 % (42.8-82.8) 10/13/17 08:00 Lymphocytes % 38.5 % (8-40) 10/13/17 08:00 Monocytes % 7.1 % (3.8-10.2) 10/13/17 08:00 Eosinophils % 1.5 % (0-4.5) 10/13/17 08:00 Basophils % 0.6 % (0-2.0) 10/13/17 08:00 Nucleated RBC % 0 % (0-0) 10/13/17 08:00 Sickle Cell Screen Negative (NEGATIVE) 10/12/17 06:00 Sodium 134 mmol/L (136-145) L 10/12/17 06:00 Potassium 4.6 mmol/L (3.5-5.1) 10/12/17 06:00 Chloride 98 mmol/L (98-107) 10/12/17 06:00 Carbon Dioxide 22 mmol/L (21-32) 10/12/17 06:00 Anion Gap 14 MMOL/L (8-16) 10/12/17 06:00 BUN 13 mg/dL (7-18) 10/12/17 06:00 Creatinine 0.9 mg/dL (0.55-1.02) 10/12/17 06:00 Creat Clearance w eGFR > 60 (>60) 10/12/17 06:00 POC Glucometer 410 UNITS (80-120) 10/15/17 05:52 Random Glucose 261 mg/dL (74-106) H 10/12/17 06:00 Calcium 10.0 mg/dL (8.5-10.1) 10/12/17 06:00 Total Bilirubin 0.8 mg/dL (0.2-1.0) 10/12/17 06:00 AST 18 U/L (15-37) 10/12/17 06:00 ALT 27 U/L (12-78) 10/12/17 06:00 Alkaline Phosphatase 92 U/L (45-117) 10/12/17 06:00 Total Protein 8.0 g/dl (6.4-8.2) 10/12/17 06:00 Albumin 4.4 g/dl (3.4-5.0) 10/12/17 06:00 Urine Color Yellow 10/12/17 09:05 Urine Appearance Slcloudy 10/12/17 09:05 Urine pH 5.0 (5.0-8.0) 10/12/17 09:05 Ur Specific [place] 1.027 (1.001-1.035) 10/12/17 09:05 Urine Protein Negative (NEGATIVE) 10/12/17 09:05 Urine Glucose (UA) 3+ (NEGATIVE) H 10/12/17 09:05 Urine Ketones 2+ (NEGATIVE) H 10/12/17 09:05 Urine Blood Negative (NEGATIVE) 10/12/17 09:05 Urine Nitrite Positive (NEGATIVE) 10/12/17 09:05 Urine Bilirubin Negative (<2.0 mg/dL) 10/12/17 09:05 Urine Urobilinogen Negative mg/dL (0.2-1.0) 10/12/17 09:05 Ur Leukocyte Esterase 1+ (NEGATIVE) H 10/12/17 09:05 Urine WBC (Auto) <1 /hpf (3-5) 10/12/17 09:05 Urine RBC (Auto) 5 /hpf (0-3) 10/12/17 09:05 Ur Epithelial Cells Rare /HPF (FEW) 10/12/17 09:05 Urine Bacteria Moderate /hpf (NONE SEEN) 10/12/17 09:05 Urine Mucus Rare 10/12/17 09:05 Urine Yeast Few 10/12/17 09:05 Acetone, Qual Trace (NEGATIVE) H 10/12/17 13:05 RPR Titer Nonreactive (NONREACTIVE) 10/12/17 06:00 HIV 1&2 Antibody Screen Negative 10/11/17 09:45 HIV P24 Antigen Negative 10/11/17 09:45 - Treatment Hospital Course: Detox Protocol Followed, Detoxed Safely, Responded well, Discharged Condition Good, Rehab Referral Accepted Patient has Accepted a Rehab Referral to: [place] - Medication Discharge Medications: Ambulatory Orders Hydrochlorothiazide 12.5 mg PO DAILY 10/11/17 Aripiprazole [Abilify -] 5 mg PO HS #30 tablet 10/12/17 Hydrochlorothiazide [Hctz -] 12.5 mg PO DAILY #30 cap 10/15/17 - Diagnosis (1) Alcohol dependence with uncomplicated withdrawal Status: Acute (2) Opioid dependence with withdrawal Status: Acute (3) Cannabis dependence Status: Chronic (4) Chronic bilateral back pain Status: Chronic Qualifiers: Back pain location: low back pain Sciatica laterality: sciatica of right side (5) Diabetes mellitus Status: Chronic Qualifiers: Diabetes mellitus type: type 1 (6) Hypertension Status: Chronic Qualifiers: Hypertension type: essential hypertension Qualified Code(s): I10 - Essential (primary) hypertension (7) Nicotine dependence Status: Chronic - AMA Did Patient Leave Against Medical Advice: No
[2017-10-15 09:50] VITALS: BP 132/67; PULSE 103; TEMP 97.9
[2017-10-15] MEDS: PRENATAL VITAMINS W/ FOLIC ACID TABLET (FP) PO SCH (10:05)
[2017-10-15] MEDS: HYDROCHLOROTHIAZIDE 12.5 MG CAPSULE (FP) PO SCH (10:07)
== END 2017-10-15 10:10 | disposition home or self-care (01) | DRG 897 ==
LOC: YASAS 09:46 → Y6N 14:30
PROC: HZ2ZZZZ Detoxification Services for Substance Abuse Treatment (ICD-10-PCS; principal; 2017-10-11)
DX: F11.23 Opioid dependence with withdrawal (principal); F33.9 Major depressive disorder, recurrent, unspecified; F10.230 Alcohol dependence with withdrawal, uncomplicated; F12.20 Cannabis dependence, uncomplicated; F17.210 Nicotine dependence, cigarettes, uncomplicated; F19.24 Other psychoactive substance dependence with psychoactive substance-induced mood disorder; I10 Essential (primary) hypertension; E10.65 Type 1 diabetes mellitus with hyperglycemia; Z79.4 Long term (current) use of insulin; M54.41 Lumbago with sciatica, right side; Z86.59 Personal history of other mental and behavioral disorders
CPT/HCPCS: 36415; 80053; 81003; 81015; 82009; 82962; 85025; 85027; 85660; 86593; 87389; 93005; 93010